=== PATIENT | male | born 1955 | race Caucasian/White ===

== ENCOUNTER 2018-04-26 20:47 | Inpatient (IN) | payer OTHER, MEDICAID ==
[~2018-04-26] VITALS: Ht 170.2 cm; Wt 85.9 kg
[2018-04-26 21:00] VITALS: BP 156/95
[2018-04-26 21:18] LABS: ABSOLUTE BASOPHILS 0.1 thou/uL (0.0-0.2); ABSOLUTE LYMPHOCYTES 1.9 thou/uL (0.8-5.3); ABSOLUTE MONOCYTES 0.8 thou/uL (0.0-1.2); ABSOLUTE NEUTROPHILS 8.9 thou/uL (1.6-8.1); BASOPHILS 0.8 %; EOSINOPHILS 0.2 %; HEMATOCRIT 49.3 % (42.0-52.0); HEMOGLOBIN 15.9 gm/dL (14.0-18.0); LYMPHOCYTES 16.4 %; MCH 27.5 pg (26.0-34.0); MCHC 32.2 g/dL (28.0-37.0); MCV 85.3 fL (80.0-100.0); MPV 7.9 fl. (7.2-11.1); NUCLEATED RBCS 0 /100WBC; PLATELET COUNT* 287 thou/uL (150-400); POLYS 75.6 %; RBC 5.79 mil/uL (4.50-6.00); RDW-CV 16.9 % (10.5-14.5); WBC 11.8 thou/uL (4.0-11.0)
[2018-04-26 21:27] LABS: ANION GAP 12 mmol/L (7-16); BUN 21 mg/dL (7-18); CALCIUM 8.9 mg/dL (8.5-10.1); CHLORIDE 102 mmol/L (98-107); CO2 22 mmol/L (21-32); CREATININE 1.3 mg/dL (0.6-1.3); GLUCOSE 152 mg/dL (70-99); POTASSIUM 3.6 mmol/L (3.5-5.1); SODIUM 136 mmol/L (136-145)
[2018-04-26 21:31] LABS: APTT 22.9 Seconds (25.0-31.3); INR 1.2; PROTIME 11.4 Seconds (9.20-11.50)
[2018-04-26 21:37] LABS: ALBUMIN 3.8 g/dL (3.4-5.0); ALKALINE PHOSPHATASE 68 U/L (46-116); LIPASE 94 U/L (73-393); NT-PRO BRAIN NAT PEPTIDE 143 pg/mL (<300); SGOT 23 U/L (15-37); SGPT 29 U/L (30-65); TOTAL BILIRUBIN 1.1 mg/dL (<0.1-1.0); TOTAL PROTEIN 7.5 g/dL (6.4-8.2); TROPONIN-I LEVEL <0.06 ng/mL (<0.06)
[2018-04-27] VITALS (9 sets, daily range): BP systolic 108–161; BP diastolic 57–90
[2018-04-27 02:35] LABS: HEMATOCRIT 45.5 % (42.0-52.0); HEMOGLOBIN 14.8 gm/dL (14.0-18.0); MCHC 32.6 g/dL (28.0-37.0); MCV 83.1 fL (80.0-100.0); MPV 7.8 fl. (7.2-11.1); RBC 5.48 mil/uL (4.50-6.00); RDW-CV 16.4 % (10.5-14.5); WBC 11.7 thou/uL (4.0-11.0)
[2018-04-27 02:55] LABS: CREATININE 1.3 mg/dL (0.6-1.3); TROPONIN-I LEVEL <0.06 ng/mL (<0.06)
[2018-04-27] MEDS ORDERED: COZAAR 25 MG TA25 M1 PO (10:18)
[2018-04-27] MEDS ORDERED: PROTONIX40 M1 PO (10:20)
[2018-04-27] MEDS ORDERED: SINEMET 25-1001 EAC1 PO (10:22)
[2018-04-27] MEDS ORDERED: NEURONTIN 300300 M1 PO (10:24)
[2018-04-27] MEDS ORDERED: LIORESAL 10 MG10 MG PO (10:24)
[2018-04-27] MEDS ORDERED: MOBIC15 MG PO (10:27)
[2018-04-27] MEDS ORDERED: DILAUDID 2 MG TA2 MG PO (10:30)
[2018-04-27] MEDS ORDERED: SERTRALINE HCL50 MG PO (10:32)
[2018-04-27] MEDS ORDERED: WELLBUTRIN XL300 MG PO (10:32)
[2018-04-27] MEDS ORDERED: PROPRANOLOL 1010 M1 PO (10:35)
[2018-04-27] MEDS ORDERED: FLOMAX0.4 MG PO (10:45)
[2018-04-27] MEDS ORDERED: ZOCOR20 MG PO (10:45)
[2018-04-27] MEDS ORDERED: BREO ELLIPTA 11 EACH INH (10:47)
[2018-04-27] MEDS ORDERED: INCRUSE ELLI62.5 MCG INH (10:48)
[2018-04-27] MEDS ORDERED: NITROSTAT0.4 M1 SUBLING (10:50)
--- NOTE | 2018-04-27 12:41 | EKG ---
[place] [address] ELECTROCARDIOGRAM REPORT Name: DERIAN PENALOZA Room: [address] ADM IN M.R.#: [id number] Admission: 04/26/18 Attend Phys: Carl Doan MD, F Discharge: Date of : 55 Report #: [id number] THIS REPORT FOR: //name// [facility] ED Test Date: 2018-04-26 Test Time: 21:02:52 Pat Name: DERIAN PENALOZA Department: Room: [address] Gender: M Actuarial Analyst: HUSSEIN : 1955 Requested By: Florian Foster Order Number: [id number] Reading MD: Nate Pierson Measurements Intervals [place] Rate: 68 P: 42 IN: 115 QRS: 68 QRSD: 104 T: 203 QT: 409 QTc: 436 Interpretive Statements Sinus rhythm Borderline short IN interval Anterolateral infarct, age indeterminate No previous ECG available for comparison Electronically Signed On 04-27-2018 12:41:08 CDT by Nate Pierson [email or web address] <ELECTRONICALLY SIGNED> By: Nate Pierson MD, [facility] 04/27/18 1241 01 01 Nate Pierson MD, FAC /EPI
--- NOTE | 2018-04-27 12:41 | EKG ---
[place] [address] ELECTROCARDIOGRAM REPORT Name: DERIAN PENALOZA Room: [address] ADM IN M.R.#: [id number] Admission: 04/26/18 Attend Phys: Carl Doan MD, F Discharge: Date of : 55 Report #: [id number] THIS REPORT FOR: //name// [facility] ED Test Date: 2018-04-26 Test Time: 21:01:16 Pat Name: DERIAN PENALOZA Department: Room: [address] Gender: M Production Support Specialist: AP : 1955 Requested By: Carl Doan Order Number: [id number] Jason MD: Nate Pierson Measurements Intervals [place] Rate: 67 P: 22 DC: 123 QRS: 60 QRSD: 103 T: 225 QT: 409 QTc: 432 Interpretive Statements Sinus rhythm Repol abnrm, severe global ischemia (LM/MVD) No previous ECG available for comparison Electronically Signed On 04-27-2018 12:41:04 CDT by Nate Pierson [email or web address] <ELECTRONICALLY SIGNED> By: Nate Pierson MD, [facility] [id number] 00 00 Nate Pierson MD, FAC /EPI
--- NOTE | 2018-04-27 12:42 | EKG ---
[place] [address] ELECTROCARDIOGRAM REPORT Name: DERIAN PENALOZA Room: [address] ADM IN .R.#: [id number] Admission: 04/26/18 Attend Phys: Carl Doan MD, F Discharge: Date of : 55 Report #: [id number] THIS REPORT FOR: //name// [facility] Test Date: 2018-04-26 Test Time: 23:42:44 Pat Name: DERIAN PENALOZA Department: Room: Gender: M Membership Solicitor: TIARA : 1955 Requested By: Florian Foster Order Number: [id number] MD: Nate Pierson Measurements Intervals [place] Rate: 72 P: 68 [place]: 159 QRS: 69 QRSD: 102 T: 185 QT: 421 QTc: 461 Interpretive Statements Incomplete analysis due to missing data in precordial lead(s) Sinus rhythm Probable LVH with secondary repol abnrm Abnormal T, probable ischemia, anterior leads Missing lead(s): V3 No previous ECG available for comparison Electronically Signed On 04-27-2018 12:41:59 CDT by Nate Pierson [email or web address] <ELECTRONICALLY SIGNED> By: Nate Pierson MD, FAC 04/27/18 1241 2342 2342 Nate Pierson MD, [facility] /EPI
--- NOTE | 2018-04-27 12:42 | EKG ---
[place] [address] ELECTROCARDIOGRAM REPORT Name: DERIAN PENALOZA Room: [address] ADM IN M.R.#: [id number] Admission: 04/26/18 Attend Phys: Carl Doan MD, F Discharge: Date of : 55 Report #: [id number] THIS REPORT FOR: //name// [place] Test Date: 2018-04-27 Test Time: 08:16:36 Pat Name: DERIAN PENALOZA Department: Room: [address] Gender: M Java Jsf Developer: : 1955 Requested By: Carl Doan Order Number: [id number] Reading MD: Nate Pierson Measurements Intervals [place] Rate: 77 P: 67 [place]: 162 QRS: 53 QRSD: 98 T: 164 QT: 452 QTc: 512 Interpretive Statements Sinus rhythm Repol abnrm suggests ischemia, anterolateral Prolonged QT interval No previous ECG available for comparison Electronically Signed On 04-27-2018 12:42:39 CDT by Nate Pierson [email or web address] <ELECTRONICALLY SIGNED> By: aNte Pierson MD, [facility] 04/27/18 1242 5 5 Nate Pierson MD, [facility] /EPI
[2018-04-27 17:11] LABS: GLYCOHEMOGLOBIN (HGB A1C) 5.3 % (4.8-5.6)
[2018-04-28] VITALS: BP 93/53
[2018-04-28 04:00] VITALS: BP 86/46
[2018-04-28 05:23] LABS: CALCIUM 9.1 mg/dL (8.5-10.1); CREATININE 1.2 mg/dL (0.6-1.3); POTASSIUM 3.9 mmol/L (3.5-5.1)
[2018-04-28 07:30] VITALS: BP 88/64
[2018-04-28 12:00] VITALS: BP 104/84
[2018-04-28] MEDS ORDERED: PLAVIX 75 MG TA75 M1 PO (14:01)
[2018-04-28] MEDS ORDERED: ATORVASTATIN CA40 MG PO (14:02)
[2018-04-28] MEDS ORDERED: TOPROL XL25 MG PO (14:02)
[2018-04-28 14:04] VITALS: BP 104/84
--- NOTE | 2018-04-29 09:19 | CARD ---
[address] [address] CARDIAC CATH REPORT Name: DERIAN PENALOZA Room: [address] IN M.Katarina.#: [id number] Admission: 04/26/18 Attend Phys: Carl Doan MD, F Discharge: 04/28/18 Date of : 55 Report #: [id number] THIS REPORT FOR: //name// APPROVED REPORT Study performed: 04/26/2018 20:54:55 Patient Details Patient Status: ED Room #: The patient is a 62 year-old male Event Personnel Dhara Blount, Radha Perkins, Denise Flores RN RN, Carl Doan Binder Fixer Procedures Performed Left Heart Cath Coronaries, Bypass Graft[facility] [id number] [facility] , Selective Right and Left Coronary AngiographyArt Access - R femoral artery* , Left Ventriculogram, Aortogram, PTCA with Stenting, YOO Angiogram, SVG Angiogram Indication Abnormal ECG, Unstable angina , Chest pain Risk Factors Coronary Artery DiseaseHypertension Previous Procedures/Diagnoses Previous CABG Admission/Lab Medications/Medications given during procedure Glycoprotein IllbIlla Inhibitors, Heparin Unfract. Procedure Narrative The patient was brought urgently to the Cardiac Catheterization Laboratory and was prepped and draped in a sterile manner. The right femoral was infiltrated with 2% Lidocaine subcutaneous anesthesia. A Pinnical 6fr sheath was inserted into the right femoral artery. Coronary angiography was performed using coronary diagnostic catheters. The right coronary system was accessed and visualized with a Diagnostic 6fr JR 4 catheter. The left coronary system was accessed and visualized with a Diagnostic 6fr JL 4 catheter. The left ventricle was accessed and visualized with a 6fr Pigtail catheter. Left ventricular/Aortic Valve [place] [address] CARDIAC CATH REPORT Name: DERIAN PENALOZA Room: [address]#: [id number] Admission: 04/26/18 Attend Phys: Carl Doan MD, F Discharge: 04/28/18 Date of : 55 Report #: [id number] pullback. Left ventriculogram was performed in THOMAS projection. An aortogram of the PASHTO was performed. Pre-demployment femoral angiogram was performed . Closure device was deployed with a 6 Fr Mynx 6Fr/7Fr. The patient tolerated the procedure well and there were no complications associated with the procedure. A hematoma occurred. Fluoro Time: 7.4 minutes Dose: DAP 701013 cGycm2 1705 mGy Contrast Type and Amount: Visipaque 230 ml Coronary Angiography The patient's coronary anatomy is right dominant. [place] Artery Percent Stenosis Patent YOO graft to the mid lad but a 90% stenosis was noted in the mid lad after the graft. Patent SVG to the 2nd marginal branch of the circumflex Diagnostic Cath Left Main 0% stenosis LAD 70% proximal stenosis OM2 60% stenosis Right Coronary 30% proximal and 30% distal stenosis RPLV 90% stenosis in a small vessel Left Ventriculography The left ventricular ejection fraction is estimated to be 60-65%. Left ventricular wall motion abnormalities are not present. There is no mitral insufficiency. aortic root injection showed no aortic insufficiency Hemodynamics The aortic pressure is 111/70 mmHg with a mean of mmHg. The left ventricular pressure is 162/3 mmHg with a mean of mmHg. The left ventricular end diastolic pressure is 7 mmHg. There was no gradient across the aortic valve upon pullback. Pullback from the left ventricle to the aorta revealed no gradient across the aortic valve. PCI Technique Lesion Anticoagulation was achieved with Heparin. bolus of iv aggrastat was given Percutaneous coronary intervention was performed on the mid left anterior descending artery segment. The lesion stenosis prior to intervention was 90% with KYLE 3 flow. A 6F IM 100CM Guide Catheter was used to engage the lma ostium. A IG: KAN 190[place] [address] CARDIAC CATH REPORT Name: DERIAN PENALOZA Room: [address] IN [facility]#: [id number] Admission: 04/26/18 Attend Phys: Carl Doan MD, F Discharge: 04/28/18 Date of : 55 Report #: [id number] Guidewire was used to cross the lesion. BALLOON DILATION A Balloon catheter Mini Trek RX 2.0 X 8 was inserted and inflated up to 10.00atm for 14seconds. Repeat angiography revealed the following post-dilatation results: 50% stenosis. Additional Inflation: 11.00atm for 15seconds. STENT DEPLOYMENT A drug-eluting stent Xience Alpine RX 2.25X12 was inserted and inflated up to 10.00atm for 14seconds. Repeat angiography revealed the following post-stent deployment results: 0% stenosis. Additional Inflation: 11.00atm for 15seconds. Final angiography reveals 0 % stenosis with KYLE 3 flow. Conclusion 1. 70% proximal stenosis of the lad 2. 60% stenosis of the 2nd marginal branch 3. patent svg to the 2nd marginal branch 4. 90% stenosis in the mid lad after the insertion of the yoo graft 5. successful placement of a drug eluting stent in the lad Recommendations Cardiac Rehabilitation Referral Aggressive Medical Therapy Medications Administered Clopidogrel <ELECTRONICALLY SIGNED> By: Carl Doan MD, [facility] 04/29/18917 7 7Carl Doan MD, [facility] /INF
--- NOTE | 2018-04-29 11:03 | H ---
[address] [address] HISTORY AND PHYSICAL Name: DERIAN PENALOZA V Room: [address] IN M.Katarina.#: [id number] Admission: 04/26/18 Attend Phys: Carl Doan MD, F Discharge: 04/28/18 Date of : 55 Report #: [id number] THIS REPORT FOR: //name// CC: Dedrick Mathew [facility] physician/PCP DATE OF SERVICE: 04/26/2018 HISTORY OF PRESENT ILLNESS: The patient is a 62-year-old single white male who I was asked to see in the hospital tonight after he complained of chest pain. The history is obtained from the patient as well as some of the Emergency Room records. There are no old charts available. The patient states about 3 years ago, he was found to have evidence of coronary artery disease and underwent 2-vessel bypass surgery in [place], [place]. Since that time, he has moved to [place], [place]. He lives by himself. He is not very active. He was doing well until this evening. He began to have intermittent chest pressure. He denied any radiation of the pain. He did feel nauseated and short of breath. He felt like he needed to belch. This occurred off and on. He called the ambulance who brought him here to [facility]. Because of the ongoing chest pain, Cardiology consultation was requested. The pain had been going on for about 4 hours on my arrival. He denied the pain being related to food. He denied any recent bleeding, fever, cough, blood in stool. Denied recent trauma to his chest. He does get short of breath with exertion, but denies any palpitations, syncope or edema. PAST MEDICAL HISTORY: Otherwise significant for an appendectomy, hypertension, COPD. MEDICATIONS: He is not sure what medications he is on. ALLERGIES: HE DOES HAVE AN INTOLERANCE TO LISINOPRIL. FAMILY HISTORY: Positive for heart disease. SOCIAL HISTORY: He is , lives by himself in [place], [place]. He is on disability because of his lung disease. He used to sell phones. He used to smoke a pack of cigarettes a day, now down to less than half pack a day. No alcohol abuse. REVIEW OF SYSTEMS: He had no history of stroke. He has had a tremor in the past and the doctor thought he might have Parkinson's disease. No history of peptic ulcer disease. He does have COPD and uses inhaler. No history of kidney disease or cancer. He does have a history of depression and sees a psychiatrist. [place] [address] HISTORY AND PHYSICAL Name: CADERIAN Connors Room: [address] IN ..#: [id number] Admission: 04/26/18 Attend Phys: Carl Doan MD, F Discharge: 04/28/18 Date of : 55 Report #: [id number] PHYSICAL EXAMINATION: GENERAL: Revealed a middle-aged male, lying in bed. He appeared in mild distress. VITAL SIGNS: He had blood pressure of 160/90, pulse 70, he was afebrile. HEENT: He was anicteric. Conjunctivae pink. Mucous members moist. NECK: Veins not distended. No carotid bruits. CHEST: Clear to auscultation. CARDIOVASCULAR: Regular rate and rhythm without murmur. ABDOMEN: Soft, nontender. EXTREMITIES: Had no edema. Dorsalis pedis pulse 1+ bilaterally. SKIN: Warm, dry. NEUROLOGIC: Nonfocal. LYMPH: No adenopathy. MUSCULOSKELETAL: No joint effusion. RADIOLOGICAL DATA: ECG: Sinus rhythm. He had T-wave inversion in V2 through V6. Chest x-ray: Normal heart size, clear lung alvarez. LABORATORY DATA: Potassium 3.6, creatinine 1.3, glucose 152. Liver function studies were normal. Troponin 0.06. White blood cell count 11.8, hemoglobin 15.9. IMPRESSION AND RECOMMENDATIONS: 1. Unstable angina. The patient with a history of coronary artery disease and ECG changes suggestive of ischemia. Recommend urgent cardiac catheterization because of prolonged pain. 2. Previous coronary artery bypass surgery. 3. History of hypertension. I will attempt to obtain a list of his medications. 4. Hyperlipidemia. 5. Chronic obstructive pulmonary disease. 6. Tobacco abuse. 7. History of depression. 8. Elevated blood sugar. I would rule out diabetes. <ELECTRONICALLY SIGNED> By: Carl Doan MD, [facility] 04/29/18 1103 2332 [id number] Doan MD, FAC /nt
--- NOTE | 2018-05-16 10:52 | D ---
[facility] [address] [place] [address] DISCHARGE SUMMARY Name: DERIAN PENALOZA [place] Room: [address] IN [place]atar[place].#: [id number] Admission: 04/26/18 Attend Phys: Carl Doan MD, F Discharge: 04/28/18 Date of : 55 Report #: [id number] THIS REPORT FOR: //name// CC: Carl Doan [facility] physician/PCP FINAL DIAGNOSES: 1. Non-ST elevation myocardial infarction. 2. Hyperlipidemia. 3. Chronic obstructive pulmonary disease. 4. Parkinson's disease. HOSPITAL SUMMARY: The patient is a 62-year-old male with history of prior bypass surgery in [place], [place]. He presented with no diagnostic ST segment abnormalities, but his cardiac troponin level was abnormal. He underwent a diagnostic cardiac catheterization with successful PCI to his left anterior descending coronary artery natively, this was done through the LAURA graft. Please see full cath report for other findings. Post-procedurally, he did well. We adjusted his blood pressure medications, added a low dose of beta willow, switched him to atorvastatin. He will be discharged on aspirin and Plavix dual antiplatelet therapy indefinitely. He will follow up with our office in 2 weeks. DISCHARGE MEDICATIONS: Aspirin 81 mg daily, Plavix 75 mg daily, losartan 25 mg at bedtime, Toprol 12.5 mg p.o. b.i.d. and atorvastatin 40 mg daily and his other medications will remain unchanged. His home medications were adjusted and that he was switched from propranolol and simvastatin. <ELECTRONICALLY SIGNED> By: Nate Pierson MD, FACC 05/16/18 1052 1042 1304Nate Pierson MD, FACC /nt
== END 2018-04-28 15:29 | disposition home or self-care (01) | DRG 247 ==
LOC: M.ERS 20:47 → M.2W 23:04 → M.ICU 23:04 → M.TBA-CV 23:04 → M.ICU 23:51 → M.2W 04-27 16:21
PROVIDERS: Emergency Medicine Emergency Medical Services; Internal Medicine Cardiovascular Disease; ADMIT Internal Medicine Cardiovascular Disease
PROC: 027034Z Dilation of Coronary Artery, One Artery with Drug-eluting Intraluminal Device, Percutaneous Approach (ICD-10-PCS; principal; 2018-04-26)
PROC: B3101ZZ Fluoroscopy of Thoracic Aorta using Low Osmolar Contrast (ICD-10-PCS; principal; 2018-04-26)
PROC: B2111ZZ Fluoroscopy of Multiple Coronary Arteries using Low Osmolar Contrast (ICD-10-PCS; principal; 2018-04-26)
PROC: B21F1ZZ Fluoroscopy of Other Bypass Graft using Low Osmolar Contrast (ICD-10-PCS; principal; 2018-04-26)
PROC: B2151ZZ Fluoroscopy of Left Heart using Low Osmolar Contrast (ICD-10-PCS; principal; 2018-04-26)
PROC: 4A023N7 Measurement of Cardiac Sampling and Pressure, Left Heart, Percutaneous Approach (ICD-10-PCS; principal; 2018-04-26)
PROC: B2181ZZ Fluoroscopy of Left Internal Mammary Bypass Graft using Low Osmolar Contrast (ICD-10-PCS; principal; 2018-04-26)
DX: I21.4 Non-ST elevation (NSTEMI) myocardial infarction (principal); I25.110 Atherosclerotic heart disease of native coronary artery with unstable angina pectoris; J44.9 Chronic obstructive pulmonary disease, unspecified; F17.210 Nicotine dependence, cigarettes, uncomplicated; E78.5 Hyperlipidemia, unspecified; F32.9 Major depressive disorder, single episode, unspecified; R73.9 Hyperglycemia, unspecified; I10 Essential (primary) hypertension; G20 Parkinson's disease; Z95.1 Presence of aortocoronary bypass graft; Z88.6 Allergy status to analgesic agent; Z79.82 Long term (current) use of aspirin; Z79.899 Other long term (current) drug therapy; Z88.8 Allergy status to other drugs, medicaments and biological substances; Z82.49 Family history of ischemic heart disease and other diseases of the circulatory system

== ENCOUNTER 2019-08-14 09:53 | Inpatient (IN) | payer OTHER, MEDICAID ==
[~2019-08-14] VITALS: Ht 170.2 cm; Wt 88.9 kg
[~2019-08-14 09:53] MED LIST: ATORVASTATIN CA40 MG PO; BREO ELLIPTA 11 EACH INH; COZAAR 25 MG TA25 M1 PO; DILAUDID 2 MG TA2 MG PO; FLOMAX0.4 MG PO; INCRUSE ELLI62.5 MCG INH; LIORESAL 10 MG10 MG PO; MOBIC15 MG PO; NEURONTIN 300300 M1 PO; NITROSTAT0.4 M1 SUBLING; PLAVIX 75 MG TA75 M1 PO; PROPRANOLOL 1010 M1 PO; PROTONIX40 M1 PO; SERTRALINE HCL50 MG PO; SINEMET 25-1001 EAC1 PO; TOPROL XL25 MG PO; WELLBUTRIN XL300 MG PO; ZOCOR20 MG PO
[2019-08-14 09:57] VITALS: BP 114/94
[2019-08-14 10:21] LABS: HEMATOCRIT 41.4 % (42.0-52.0); HEMOGLOBIN 13.9 gm/dL (14.0-18.0); MCH 28.4 pg (26.0-34.0); MCHC 33.6 g/dL (28.0-37.0); MCV 84.7 fL (80.0-100.0); MPV 7.6 fl. (7.2-11.1); NUCLEATED RBCS 0 /100WBC; PLATELET COUNT* 305 thou/uL (150-400); RBC 4.89 mil/uL (4.50-6.00); RDW-CV 14.7 % (10.5-14.5); WBC 17.7 thou/uL (4.0-11.0)
[2019-08-14 10:32] LABS: APTT 24.6 Seconds (25.0-31.3); CALCIUM 8.6 mg/dL (8.5-10.1); CREATININE 1.5 mg/dL (0.6-1.3); INR 1.1; POTASSIUM 3.8 mmol/L (3.5-5.1); PROTIME 11.1 Seconds (9.20-11.50)
[2019-08-14 10:47] LABS: ABSOLUTE BASOPHILS 0.2 thou/uL (0.0-0.2); ABSOLUTE EOSINOPHILS 4.2 thou/uL (0.0-0.7); ABSOLUTE LYMPHOCYTES 0.9 thou/uL (0.8-5.3); ABSOLUTE MONOCYTES 0.5 thou/uL (0.0-1.2); ABSOLUTE NEUTROPHILS 11.9 thou/uL (1.6-8.1); ALBUMIN 3.4 g/dL (3.4-5.0); CK-MB MASS 0.6 ng/mL (<0.5-3.6); TOTAL BILIRUBIN 2.3 mg/dL (<0.1-1.0); TOTAL PROTEIN 7.1 g/dL (6.4-8.2)
[2019-08-14 10:48] LABS: MICROCYTES 1+; PLATELET ESTIMATE ADEQUATE
[2019-08-14 12:02] LABS: URINE BILIRUBIN NEGATIVE (Negative); URINE BLOOD NEGATIVE (Negative); URINE CLARITY CLEAR; URINE COLOR YELLOW; URINE GLUCOSE-RANDOM NEGATIVE (Negative); URINE KETONES TRACE (Negative); URINE LEUKOCYTES-REFLEX NEGATIVE (Negative); URINE NITRITE-REFLEX NEGATIVE (Negative); URINE PROTEIN NEGATIVE (Negative); URINE UROBILINOGEN 0.2 E.U./dl (0.2-1.0)
[2019-08-14 12:10] LABS: AMP/METHAMP Negative (Negative); BARBITURATES Negative (Negative); BENZODIAZEPINES Negative (Negative); COCAINE Negative (Negative); METHADONE Negative (Negative); OPIATES POSITIVE (Negative); PCP Negative (Negative); THC Negative (Negative)
--- NOTE | 2019-08-14 13:59 | EKG ---
[place] [address] ELECTROCARDIOGRAM REPORT Name: DERIAN PENALOZA V Room: [place] [address] ADM IN ..#: [id number] Admission: 08/14/19 Attend Phys: Ken Schneider, Discharge: Date of : 55 Report #: [id number] THIS REPORT FOR: //name// [facility] ED Test Date: 2019-08-14 Test Time: 10:02:51 Pat Name: DERIAN PENALOZA Department: Room: [facility] Gender: M Electrician Third: : 1955 Requested By: Zaid Betancur Order Number: [id number] MD: Jeramy Calvo Measurements Intervals [place] Rate: 73 P: 100 [place]: 170 QRS: 76 QRSD: 99 T: -58 QT: 549 QTc: 606 Interpretive Statements Sinus rhythm Low voltage, extremity leads Nonspecific T abnormalities, lateral leads Prolonged QT interval Compared to ECG 04/27/2018 08:16:36 Low QRS voltage now present T-wave abnormality now present Early repolarization no longer present Possible ischemia no longer present Electronically Signed On 08-14-2019 13:58:59 ULTRASONIC WELDING MACHINE OPERATOR by Jeramy Calvo [email or web address] <ELECTRONICALLY SIGNED> By: Jeramy Calvo MD, FACC 08/14/19 1358 1002 1002 Jeramy Calvo MD, FAC /EPI
[2019-08-14 15:30] VITALS: BP 125/45
[2019-08-14 16:00] VITALS: BP 143/72
[2019-08-14 18:09] LABS: INFLUENZA A ANTIGEN Negative (Negative); INFLUENZA B ANTIGEN Negative (Negative)
--- NOTE | 2019-08-14 19:50 | NUR ---
PT ARRIVED FROM ER AROUND 1545. ASSESSMENT COMPLETED CHARTED. ABLE TO MAKE SOME NEEDS KNOWN. PT ON BEDREST FOR NOW DUE TO WEAKNESS AND BEING UNSTEADY. RESTING IN BED AT THIS TIME. NO C/O PAIN OR DISCOMFORT. SEPSIS POSITIVE AND NOTIFIED NEW FLUIDS STARTED AND ABT STARTED. PT EASILY REDIRECTED. WILL CONTINUE TO MONITOR.
[2019-08-14 20:59] VITALS: BP 136/66
[2019-08-15 00:11] VITALS: BP 118/56
[2019-08-15 04:22] VITALS: BP 133/69
[2019-08-15 05:01] LABS: HEMATOCRIT 37.5 % (42.0-52.0); HEMOGLOBIN 12.3 gm/dL (14.0-18.0); MCH 27.7 pg (26.0-34.0); MCHC 32.7 g/dL (28.0-37.0); MCV 84.7 fL (80.0-100.0); MPV 7.5 fl. (7.2-11.1); RBC 4.43 mil/uL (4.50-6.00); RDW-CV 14.6 % (10.5-14.5); WBC 12.7 thou/uL (4.0-11.0)
[2019-08-15 05:41] LABS: ALBUMIN 2.8 g/dL (3.4-5.0); CREATININE 1.2 mg/dL (0.6-1.3); MAGNESIUM 1.8 mg/dL (1.8-2.4); POTASSIUM 3.4 mmol/L (3.5-5.1); TOTAL BILIRUBIN 1.7 mg/dL (<0.1-1.0); TOTAL PROTEIN 6.1 g/dL (6.4-8.2)
[2019-08-15 08:00] VITALS: BP 157/73
--- NOTE | 2019-08-15 08:22 | NUR ---
PT IS ABLE TO COMMUNICATE HIS NEEDS TO STAFF WITH MINOR DIFFICULTY; HE IS CONFUSED AND DISORIENTED AT TIMES BUT CAN USUALLY ANSWER QUESTIONS AND FOLLOW COMMANDS. HE HAS DENIED THE NEED FOR PAIN MEDICATION UP TO THIS TIME. MATEO IS PATENT.
--- NOTE | 2019-08-15 10:43 | NUR ---
cm completed initial assessment to discuss d/c planning. pt is a&ox3; pt presents w/some confusion and is a poor historian. pt speech is somewhat garbled and low, at times difficult to hear/undestand. pt states he lives in his apt (apt 14) alone. pt states he has something to help him w/breathing, but couldnt name DME. pt states he receives care service through Medicaid benefit. However pt couldnt recall name of company that provides services. pt states he takes his own showers. cm to cont to follow.
[2019-08-15 12:00] VITALS: BP 138/67
[2019-08-15 15:52] VITALS: BP 145/56
--- NOTE | 2019-08-15 17:13 | NUR ---
PT CALM AND COOPERATIVE THROUGHOUT SHIFT. OCASSIONALLY FORGETFUL. HALLUCINATIONS AT TIMES. IVF DC THIS AFTERNOON. TOLERATING PO WELL. GALINDO CATH D/C. PT VOIDING PER URINAL. PT CALLS APPROPRIATELY FOR ASSIST
[2019-08-15 19:35] VITALS: BP 117/63
[2019-08-16] VITALS: BP 164/75
[2019-08-16 04:00] VITALS: BP 120/60
--- NOTE | 2019-08-16 04:08 | NUR ---
PT HAS NOT URINATED MUCH TONIGHT. BLADDER SCAN DONE. IT SHOWED 380ML. PT SAYS HE ABSOLUTELY WILL NOT LET ME PUT A CATHETER IN HIM AND SAYS THAT HE WILL GO AMA FIRST.
[2019-08-16 08:00] VITALS: BP 148/77
[2019-08-16] MEDS ORDERED: DOXYCYCLINE 10100 M2 PO (12:21)
[2019-08-16 12:52] VITALS: BP 146/78
[2019-08-16 13:42] VITALS: BP 146/78
--- NOTE | 2019-08-16 14:32 | NUR ---
PT VSS, PT SR ON TELE, ORIENTED TO SELF, LOCATION, SITUATION. PT FALL RISK DUE TO RESET FALL CAUSING VISIT. HOURLY ROUNDING PERFORMED, POSSESSIONS AND CALL LIGHT WITHIN REACH. REC. DC ORDERS, REVIEWED WITH PT AND ANSWERED QUESTIONS. GAVE PT CARE NOTES FOR SCRIPTS FILED ELECTRONICALLY BY PROVIDER. REMOVED TELE MONITOR AND IV WITHOUT COMPLICATION. PT TAKEN TO FRONT DOOR IN WHEELCHAIR WHERE PICKED UP BY SIGNIFICANT OTHER IN CAR.
== END 2019-08-16 14:05 | disposition home or self-care (01) | DRG 917 ==
LOC: M.ERS 09:53 → M.2W 11:27 → M.TBA-ER 11:27 → M.2W 16:03
PROVIDERS: Family Medicine; ADMIT Family Medicine
DX: T50.901A Poisoning by unspecified drugs, medicaments and biological substances, accidental (unintentional), initial encounter (principal); G92 Toxic encephalopathy; E87.2 Acidosis; J44.0 Chronic obstructive pulmonary disease with (acute) lower respiratory infection; F32.9 Major depressive disorder, single episode, unspecified; J20.9 Acute bronchitis, unspecified; Z82.49 Family history of ischemic heart disease and other diseases of the circulatory system; G20 Parkinson's disease; G89.4 Chronic pain syndrome; I10 Essential (primary) hypertension; D72.829 Elevated white blood cell count, unspecified; I25.10 Atherosclerotic heart disease of native coronary artery without angina pectoris; Z90.49 Acquired absence of other specified parts of digestive tract; Z95.1 Presence of aortocoronary bypass graft; Z88.5 Allergy status to narcotic agent; Z88.8 Allergy status to other drugs, medicaments and biological substances; Y92.89 Other specified places as the place of occurrence of the external cause

== ENCOUNTER 2019-08-23 23:33 | Emergency (ER) | payer OTHER, MEDICAID ==
[~2019-08-23] VITALS: Ht 170.2 cm; Wt 87.5 kg
[~2019-08-23 23:33] MED LIST changes: +DOXYCYCLINE 10100 M2 PO
[2019-08-23 23:56] LABS: HEMATOCRIT 36.1 % (42.0-52.0); HEMOGLOBIN 12.1 gm/dL (14.0-18.0); MCH 28.5 pg (26.0-34.0); MCHC 33.6 g/dL (28.0-37.0); MCV 84.8 fL (80.0-100.0); NUCLEATED RBCS 0 /100WBC; PLATELET COUNT* 341 thou/uL (150-400); RBC 4.25 mil/uL (4.50-6.00); RDW-CV 15.2 % (10.5-14.5); WBC 18.3 thou/uL (4.0-11.0)
[2019-08-24 00:10] LABS: CALCIUM 8.8 mg/dL (8.5-10.1); CREATININE 1.4 mg/dL (0.6-1.3); POTASSIUM 3.7 mmol/L (3.5-5.1)
[2019-08-24 00:21] LABS: ALBUMIN 3.5 g/dL (3.4-5.0); INR 1.2; PROTIME 12.3 Seconds (9.20-11.50); TOTAL BILIRUBIN 5.4 mg/dL (<0.1-1.0); TOTAL PROTEIN 7.5 g/dL (6.4-8.2)
[2019-08-24 00:41] LABS: ABSOLUTE LYMPHOCYTES 3.1 thou/uL (0.8-5.3); ABSOLUTE MONOCYTES 0.5 thou/uL (0.0-1.2); ABSOLUTE NEUTROPHILS 14.6 thou/uL (1.6-8.1); ANISOCYTOSIS Occasional; PLATELET ESTIMATE ADEQUATE; TOXIC GRANULATION 2+
[2019-08-24 01:30] LABS: URINE BILIRUBIN NEGATIVE (Negative); URINE BLOOD 3+ (Negative); URINE CLARITY CLEAR; URINE COLOR DARK YELLOW; URINE GLUCOSE-RANDOM NEGATIVE (Negative); URINE KETONES 1+ (Negative); URINE LEUKOCYTES-REFLEX NEGATIVE (Negative); URINE NITRITE-REFLEX NEGATIVE (Negative); URINE PROTEIN 1+ (Negative); URINE SPECIFIC GRAVITY >= 1.030 (1.005-1.030); URINE UROBILINOGEN 0.2 E.U./dl (0.2-1.0)
[2019-08-24 01:36] LABS: SQUAMOUS 0-3 Few /LPF (0-3); URINE WBC-REFLEX None Seen /HPF (0-5)
[2019-08-24 01:37] LABS: CRYSTALS None Seen /LPF (None Seen); FINE GRANULAR CASTS 0-3 Few /LPF (None Seen); HYALINE CASTS 0-3 Few /LPF (None Seen); MUCUS >6 Heavy strn/LPF (None Seen); URINE RBC 3-10 Few /HPF (0-2)
[2019-08-24 03:44] VITALS: BP 148/70
--- NOTE | 2019-08-24 11:25 | EKG ---
[place] [address] ELECTROCARDIOGRAM REPORT Name: DERIAN PENALOZA V Room: [facility]#: [id number] Admission: 08/23/19 Attend Phys: Discharge: 08/24/19 Date of : 55 Report #: [id number] THIS REPORT FOR: //name// [facility] ED Test Date: 2019-08-23 Test Time: 23:57:55 Pat Name: DERIAN PENALOZA Department: Room: Gender: M Senior Foreman: LOUISA : 1955 Requested By: Cate Arreola Order Number: [id number] MD: Carl Doan Measurements Intervals [place] Rate: 83 P: 50 [place]: 133 QRS: 50 QRSD: 96 T: 135 QT: 417 QTc: 490 Interpretive Statements Sinus rhythm Abnrm T, consider ischemia, anterolateral lds Compared to ECG 08/14/2019 10:02:51 t wave change more prominent Prolonged QT interval no longer present Electronically Signed On 08-24-2019 11:25:25 MUSHROOM FARMER by Carl Doan [email or web address] <ELECTRONICALLY SIGNED> By: Carl Doan MD, [facility] 08/24/19 1125 56 Carl Doan MD, FAC /EPI
== END 2019-08-24 03:46 | disposition short-term general hospital (02) ==
LOC: M.ERS 23:33
PROVIDERS: Emergency Medicine
DX: S06.5X0A Traumatic subdural hemorrhage without loss of consciousness, initial encounter (principal); S32.010A Wedge compression fracture of first lumbar vertebra, initial encounter for closed fracture; S80.12XA Contusion of left lower leg, initial encounter; S80.11XA Contusion of right lower leg, initial encounter; S60.222A Contusion of left hand, initial encounter; S60.221A Contusion of right hand, initial encounter; G20 Parkinson's disease; I25.10 Atherosclerotic heart disease of native coronary artery without angina pectoris; I10 Essential (primary) hypertension; J44.9 Chronic obstructive pulmonary disease, unspecified; F32.9 Major depressive disorder, single episode, unspecified; F17.210 Nicotine dependence, cigarettes, uncomplicated; Z90.49 Acquired absence of other specified parts of digestive tract; Z79.899 Other long term (current) drug therapy; Z95.1 Presence of aortocoronary bypass graft; Z88.5 Allergy status to narcotic agent; Z88.8 Allergy status to other drugs, medicaments and biological substances; W18.39XA Other fall on same level, initial encounter; Y93.89 Activity, other specified; Y92.89 Other specified places as the place of occurrence of the external cause; Y99.8 Other external cause status

== ENCOUNTER 2021-04-18 10:35 | Emergency (ER) | payer MEDICARE, MEDICAID ==
[~2021-04-18] VITALS: Ht 170.2 cm; Wt 88.5 kg
--- NOTE | ~2021-04-18 | EMS ---
[address] [address] EMS Patient Care Report Name: DERIAN PENALOZA [facility] [id number] Admission: 04/18/21 Attend Phys: Discharge: 04/18/21 Date of : 55 Report #: [id number] THIS REPORT FOR: //name// Report Transmitted: 04/21/2021 10:13 EMS Care Summary [place] [facility] Incident [id number] @ 04/18/2021 09:55 Incident Location [address] [place] [address] Patient DERIAN PENALOZA Male, 65 Years 1955 Patient Address [address] [place] [address] Patient History Diabetes,Hypertension (HTN),Cardiac - Stent, Patient Allergies Codeine,Lisinopril, Chief Complaint Nausea Disposition Transported No Lights/[place] [facility] Reason Sick Person Transported To [facility] Narrative Upon arrival the patient was located sitting in a recliner in his living room. The patient advised he had been feeling nauseated and throwing up all night. He advised he was unable to sleep or take any of his medications. The patient initially denied pain but then later advised he was having chest pain and [address] [address] EMS Patient Care Report Name: DERIAN PENALOZA V [facility] [id number] Admission: 04/18/21 Attend Phys: Discharge: 04/18/21 Date of : 55 Report #: [id number] chronic back pain due to not being able to take his hydrocodone. The patient's vitals were obtained including a 12 Lead ECG displaying sinus rhythm. The patient requested that EMS just give him something for the nausea and some pain medications and leave him at home. The patient was informed EMS couldn't do that and we could only treat him if we took him to the hospital. The patient then stood up and walked out his door saying "lets go" as he walked to the ambulance. The patient was placed on the EMS cot and secured with industrial cot straps. The patient was given Zofran for his nausea and noted a reduction in nausea. The patient attempted to vomit one time during transport after coughing but nothing came up. Initial Vitals @10:16P: 67,R: 18,BP: 140/88,Pain: 4/10,GCS: 15,SpO2: 100,Revised Trauma: 12, @10:01P: 72,R: 18,BP: 152/83,GCS: 15,Glucose: 134,SpO2: 100,Revised Trauma: 12,ND Suspected: false @10:30P: 68,R: 18,BP: 157/83,Pain: 4/10,GCS: 15,SpO2: 100,Revised Trauma: 12, Assessments @09:59MENTAL:Person Oriented,Time Oriented,Place Oriented,Event Oriented,SKIN:HEENT:Head/Face: No Abnormalities,Neck/Airway: No Abnormalities,LUNG SOUNDS:General: Vomiting,General: Nausea,Right Upper: Tenderness,Left Upper: Other,Right Upper: Other,Left Upper: Tenderness,ABDOMEN:General: Vomiting,General: Nausea,Right Upper: Tenderness,Left Upper: Other,Right Upper: Other,Left Upper: Tenderness,PELVIS//GI:No Abnormalities,EXTREMITIES:Left Arm: No Abnormalities,Right Arm: No Abnormalities,Left Leg: No Abnormalities,Right Leg: No Abnormalities,PULSE:Radial: 2+ Normal,NEURO:No Abnormalities, Impression Nausea Procedures @10:13Normal Saline (.9% NaCl) - Cold 400cc (20 ga) Site: Forearm-LeftResponse: ImprovedSucceeded@10:14Ondansetron - 4 Milligrams (mg) - Intramuscular (IM)Response: Unchanged@10:00ALS AssessmentResponse: UnchangedSucceeded Timeline 09:55,Call Received 09:55,Dispatched 09:55,En Route 09:57,Initial Responder On Scene 09:57,On Scene 09:58,At Patient 10:00,ALS Assessment,Response: UnchangedSucceeded, 10:01,BP: 152/83 M,PULSE: 72,RR: 18 R,SPO2: 100 Ox,ETCO2: ,B,PAIN: ,GCS: 15, [place] [address] EMS Patient Care Report Name: DERIAN PENALOZA V [facility] [id number] Admission: 04/18/21 Attend Phys: Discharge: 04/18/21 Date of : 55 Report #: [id number] 10:13,Normal Saline (.9% NaCl) - Cold 400cc 20 ga Site: Forearm-Left,Response: ImprovedSucceeded, 10:14,Depart Scene 10:14,Ondansetron - 4 Milligrams (mg) - Intramuscular (IM),Response: Unchanged 10:16,BP: 140/88 M,PULSE: 67,RR: 18 R,SPO2: 100 Ox,ETCO2: ,BG: ,PAIN: 4,GCS: 15, 10:30,BP: 157/83 M,PULSE: 68,RR: 18 R,SPO2: 100 Ox,ETCO2: ,BG: ,PAIN: 4,GCS: 15, 10:32,At Destination 10:33,Transfer Patient 11:05,Call Closed 11:05,In District Disclaimer v1.1 Copyright 2020 [employer] This EMS Care Summary contains data elements from the applicable legal record (which may be displayed differently). It is designed to provide pertinent information for the following purposes: continuity of care, clinical quality, and state data reporting. The complete legal record is available to ED staff and administrators of the receiving hospital in [employer]s Patient Tracker. All data is provided "as is."
[2021-04-18 11:01] LABS: ABSOLUTE BASOPHILS 0.2 thou/uL (0.0-0.2); ABSOLUTE EOSINOPHILS 0.1 thou/uL (0.0-0.7); ABSOLUTE LYMPHOCYTES 2.2 thou/uL (0.8-5.3); ABSOLUTE MONOCYTES 1.2 thou/uL (0.0-1.2); ABSOLUTE NEUTROPHILS 12.1 thou/uL (1.6-8.1); EOSINOPHILS 0.5 %; HEMATOCRIT 41.3 % (42.0-52.0); HEMOGLOBIN 13.3 gm/dL (14.0-18.0); LYMPHOCYTES 14.2 %; MCH 21.8 pg (26.0-34.0); MCHC 32.2 g/dL (28.0-37.0); MCV 67.7 fL (80.0-100.0); MONOCYTES 7.5 %; MPV 6.6 fl. (7.2-11.1); NUCLEATED RBCS 0 /100WBC; PLATELET COUNT* 585 thou/uL (150-400); POLYS 76.8 %; RDW-CV 19.4 % (10.5-14.5); WBC 15.8 thou/uL (4.0-11.0)
[2021-04-18 11:09] LABS: CALCIUM 8.4 mg/dL (8.5-10.1); CREATININE 0.9 mg/dL (0.6-1.3); POTASSIUM 3.4 mmol/L (3.5-5.1)
[2021-04-18 11:14] LABS: ALBUMIN 3.6 g/dL (3.4-5.0); TOTAL BILIRUBIN 2.4 mg/dL (<0.1-1.0); TOTAL PROTEIN 7.5 g/dL (6.4-8.2)
[2021-04-18 11:35] LABS: ANISOCYTOSIS 1+; HYPOCHROMASIA 1+; MICROCYTES 3+; PLATELET ESTIMATE ADEQUATE
--- NOTE | 2021-04-18 14:42 | EKG ---
[place] [address] ELECTROCARDIOGRAM REPORT Name: DERIAN PENALOZA V Room: [facility]#: [id number] Admission: 04/18/21 Attend Phys: Discharge: Date of : 55 Date of Service: 04/18/21 1056 Report #: [id number] THIS REPORT FOR: //name// [facility] ED Test Date: 2021-04-18 Test Time: 10:56:07 Pat Name: DERIAN PENALOZA Department: Room: Gender: Facilities Maintenance Supervisor: [facility] : 1955 Requested By: Caitie Deleon Order Number: [id number] MD: Derian Chun Measurements Intervals [place] Rate: 58 P: [place]: QRS: 75 QRSD: 113 T: 124 QT: 472 QTc: 464 Interpretive Statements Junctional rhythm Borderline intraventricular conduction delay Borderline repolarization abnormality Compared to ECG 08/23/2019 23:57:55 Junctional rhythm now present Sinus rhythm no longer present Possible ischemia no longer present Electronically Signed On 04-18-2021 14:42:15 CDT by Derian Chun [email or web address] <ELECTRONICALLY SIGNED> By: Derian Chun MD, [facility] 04/18/21 1442 1056 1056 Derian Chun MD, [facility] /EPI
[2021-04-18] MEDS ORDERED: PHENERGAN 25 MG25 M1 PO (14:49)
[2021-04-18] MEDS ORDERED: PROMS25 WY RECTAL (14:49)
[2021-04-18 15:02] VITALS: BP 139/73
== END 2021-04-18 15:05 | disposition home or self-care (01) ==
LOC: M.ERS 10:35
PROVIDERS: Nurse Practitioner Family
DX: R11.2 Nausea with vomiting, unspecified (principal); Z20.822 Contact with and (suspected) exposure to COVID-19; I25.10 Atherosclerotic heart disease of native coronary artery without angina pectoris; I10 Essential (primary) hypertension; J44.9 Chronic obstructive pulmonary disease, unspecified; Z88.5 Allergy status to narcotic agent; Z88.8 Allergy status to other drugs, medicaments and biological substances; Z90.49 Acquired absence of other specified parts of digestive tract; Z95.1 Presence of aortocoronary bypass graft